=== PATIENT | female | born 1945 | race Caucasian/White ===

== ENCOUNTER → 2018-08-10 | Outpatient (CLI) | payer MEDICARE, BC | LOC: MC.RAD 07-26 07:00 | DX: Z12.31 Encounter for screening mammogram for malignant neoplasm of breast (principal) ==

== ENCOUNTER → 2019-09-15 | Outpatient (CLI) | payer MEDICARE, BC | LOC: MC.RAD 08:41 | DX: Z12.31 Encounter for screening mammogram for malignant neoplasm of breast (principal) ==

== ENCOUNTER → 2021-05-31 | Outpatient (CLI) | payer MEDICARE, BC | LOC: MC.RAD 14:23 | DX: Z12.31 Encounter for screening mammogram for malignant neoplasm of breast (principal) ==

== ENCOUNTER → 2022-12-25 | Outpatient (CLI) | payer MEDICARE, BC | LOC: MC.RAD 07:19 | DX: Z12.31 Encounter for screening mammogram for malignant neoplasm of breast (principal) ==

== ENCOUNTER → 2023-12-28 | Outpatient (CLI) | payer MEDICARE, BC | LOC: MC.RAD 07:30 | DX: Z12.31 Encounter for screening mammogram for malignant neoplasm of breast (principal) ==

== ENCOUNTER 2024-05-02 08:48 | Day surgery (SDC) | payer MEDICARE, BC ==
[~2024-05-02] VITALS: Ht 160 cm; Wt 72.4 kg
[~2024-05-02 08:48] MED LIST: LR 1,000 ML IV SCH; Ondansetron 4 MG/2 ML VIAL IV PRN
[2024-05-02 09:27] VITALS: BP 142/78; PULSE 68; TEMP 96.6
--- NOTE | 2024-05-02 09:31 | NUR ---
Pt arrived with , bowels are WNL for procedure, VSS, RR even and unlabored; reviewed and signed consents, no questions/concerns; reviewed meds/pharm/allergies/history and updated; to place IV and await procedure.
[2024-05-02] MEDS ORDERED: HYZAAR 50-12.1 UDTAB PO (09:33)
[2024-05-02] MEDS ORDERED: FOSAMAX 70MG TA70 MG PO (09:33)
[2024-05-02] MEDS ORDERED: fentaNYL 50 MCG/ML 2 ML VIAL ONE (10:08)
[2024-05-02] MEDS ORDERED: Lidocaine PF 2% (20 MG/ML) 5 ML VIAL ONE ×2 (10:08→10:39)
[2024-05-02] MEDS ORDERED: PROTONIX 40MG T40 MG PO (10:44)
[2024-05-02 10:50] VITALS: BP 135/88; PULSE 53
[2024-05-02 11:05] VITALS: BP 143/78; PULSE 60
[2024-05-02 11:20] VITALS: BP 143/82; PULSE 58
--- NOTE | 2024-05-02 11:21 | NUR ---
1050 PATIENT RETURNS TO [facility]ART. PT AWAKE AND ALERT. RESPIRATIONS UNLABORED. AMBULATED TO RECLINER CHAIR WITH 2:1 SBA. PT DENIES NAUSEA OR ABDOMINAL PAIN. HOOKED UP TO MONITOR AND VS OBTAINED. CALL LIGHT AT SIDE AND PRESENT. 1100 PATIENT TOLERATING [place] [employer] AND WATER WITHOUT NAUSEA OR DIFFICULTY SWALLOWING (EGD ONLY). 1110 DR. SONG IN ROOM SPEAKING WITH PATIENT. 1120 D/C INSTRUCTIONS REVIEWED WITH PATIENT. PT VERBALIZED UNDERSTANDING AND A COPY OF INSTRUCTIONS PROVIDED IN D/C FOLDER. 1130 PATIENT DRESSES SELF. 1145 PATIENT DISCHARGED FROM UNIT VIA W/C TO A PERSONAL VEHICLE. PT LEFT HOSPITAL IN STABLE CONDITION.
== END 2024-05-02 11:45 | disposition home or self-care (01) ==
LOC: SDCO 08:48
DX: K29.31 Chronic superficial gastritis with bleeding (principal); K25.4 Chronic or unspecified gastric ulcer with hemorrhage; Z86.010 Personal history of colon polyps; K64.0 First degree hemorrhoids; K57.30 Diverticulosis of large intestine without perforation or abscess without bleeding; E66.9 Obesity, unspecified; Z68.28 Body mass index [BMI] 28.0-28.9, adult
CPT/HCPCS: J2704; J3010; J7120